=== PATIENT | female | born 1985 | race Caucasian/White ===

== ENCOUNTER → 2018-10-02 | Outpatient (REF) | payer OTHER, SELFPAY | LOC: M LAB LCGH 13:49 | PROVIDERS: ATTEND Family Medicine | DX: Z12.4 Encounter for screening for malignant neoplasm of cervix (principal); N87.0 Mild cervical dysplasia ==

== ENCOUNTER 2022-10-24 21:02 | Inpatient (IN) | payer MEDICAID, OTHER ==
[~2022-10-24] VITALS: Ht 167.6 cm; Wt 60.0 kg
[2022-10-24 21:45] LABS: HEMATOCRIT 41.6 % (36.0-47.0); HEMOGLOBIN 13.8 g/dl (12.0-15.5); MEAN CORPUSCULAR HEMOGLOBIN 30.1 pg (27.0-33.0); MEAN CORPUSCULAR HGB CONC 33.2 g/dl (32.0-36.5); MEAN CORPUSCULAR VOLUME 90.6 fl (80.0-96.0); PLATELET COUNT, AUTOMATED 350 10^3/uL (150-450); RED BLOOD COUNT 4.59 10^6/uL (4.00-5.40); WHITE BLOOD COUNT 17.3 10^3/uL (4.0-10.0)
[2022-10-24 21:56] LABS: AMPHETAMINES LEVEL URINE NEGATIVE (NEGATIVE); BARBITURATES URINE NEGATIVE (NEGATIVE); BENZODIAZEPINES URINE NEGATIVE (NEGATIVE)
[2022-10-24 21:57] LABS: METHADONE URINE NEGATIVE (NEGATIVE); OPIATES URINE NEGATIVE (NEGATIVE); PHENCYCLIDINE URINE NEGATIVE (NEGATIVE)
[2022-10-24 21:58] LABS: ETHYL ALCOHOL (ETHANOL) < 0.003 % (0.000-0.010)
[2022-10-24 22:00] LABS: ACETAMINOPHEN LEVEL < 2.0 UG/ML (10.0-20.0); ALBUMIN 4.6 G/DL (3.2-5.2); ALKALINE PHOSPHATASE 89 U/L (46-116); ALT/SGPT 38 U/L (7.0-40); AST/SGOT 21 U/L (<34); BILIRUBIN,DIRECT 0.2 MG/DL (<0.4); BILIRUBIN,TOTAL 0.7 MG/DL (0.3-1.2); BLOOD UREA NITROGEN 15 MG/DL (9-23); CARBON DIOXIDE LEVEL 23 MMOL/L (20-31); CHLORIDE LEVEL 106 MMOL/L (98-107); CREATININE FOR GFR 0.67 MG/DL (0.55-1.30); GLOMERULAR FILTRATION RATE > 60.0 (>60); GLUCOSE, FASTING 102 MG/DL (60-100); POTASSIUM SERUM 3.9 MMOL/L (3.5-5.1); SALICYLATE LEVEL < 3.0 MG/DL (<30); SODIUM LEVEL 138 MMOL/L (136-145)
[2022-10-24 22:06] LABS: CANNABINOIDS URINE POSITIVE (NEGATIVE); COCAINE METABOLITE URINE POSITIVE (NEGATIVE)
[2022-10-24 22:07] LABS: THYROID STIMULATING HORMONE 3.574 uIU/ML (0.55-4.78)
[2022-10-24] MEDS ORDERED: HOME MED LIST COMPLETE! XX SCH (22:15)
[2022-10-24] MEDS ORDERED: LORazepam 1 MG TAB PO ONE (22:30)
[2022-10-24] MEDS ORDERED: MOM 30ML SUSPENSION UDC PO PRN (23:25)
[2022-10-24] MEDS ORDERED: MAALOX 30 ML SUSP *UDC PO PRN (23:25)
[2022-10-24] MEDS ORDERED: LORazepam 2 MG TAB PO PRN (23:25)
[2022-10-25] MEDS ORDERED: UNRESOLVED CLARIFICATION ENTRY XX SCH (00:01)
[2022-10-25 00:20] VITALS: BP 148/70; TEMP 98.5; O2SAT 97
[2022-10-25 00:32] VITALS: BP 148/70
[2022-10-25] MEDS: THIAMINE 100 MG TAB PO SCH ×3 (00:52→20:04)
[2022-10-25] MEDS: traZODone 50 MG TAB PO PRN ×2 (00:55→20:04)
[2022-10-25 06:00] VITALS: BP 108/52; TEMP 98.4; O2SAT 100
[2022-10-25] MEDS: FOLIC ACID 1MG TAB PO SCH (09:03)
[2022-10-25] MEDS: MULTIVITAMINS/MINERALS THERAP 1 TAB PO SCH (09:03)
[2022-10-25] MEDS: ACETAMINOPHEN TAB 650MG DOSE (2X325MG) PO PRN (09:08)
[2022-10-25] MEDS: NICOTINE 21MG/24HR 1 EA TRANSDERMAL TD SCH (14:21)
[2022-10-25] MEDS: VENLAFAXINE **XR** 37.5 MG CAPSULE PO SCH (14:21)
[2022-10-25] MEDS: ACAMPROSATE CALCIUM 333MG TABLET (CAMPRAL) PO SCH ×2 (15:37→20:04)
[2022-10-25 16:37] VITALS: BP 140/70; TEMP 98.1; O2SAT 97
[2022-10-25 19:30] VITALS: BP 145/70
[2022-10-25] MEDS: diphenhydrAMINE 50MG CAP PO PRN (22:44)
[2022-10-26 05:09] VITALS: BP 140/70
[2022-10-26 06:52] VITALS: BP_SYST 145; BP_DIAS 72; BP_DIAS 77; TEMP 97.9; TEMP 98.2; O2SAT 96; O2SAT 99
[2022-10-26] MEDS: FOLIC ACID 1MG TAB PO SCH (08:06)
[2022-10-26] MEDS: ACAMPROSATE CALCIUM 333MG TABLET (CAMPRAL) PO SCH ×3 (08:06→20:00)
[2022-10-26] MEDS: NICOTINE 21MG/24HR 1 EA TRANSDERMAL TD SCH (08:06)
[2022-10-26] MEDS: MULTIVITAMINS/MINERALS THERAP 1 TAB PO SCH (08:06)
[2022-10-26] MEDS: THIAMINE 100 MG TAB PO SCH ×2 (08:06→20:00)
[2022-10-26] MEDS: VENLAFAXINE **XR** 37.5 MG CAPSULE PO SCH (08:06)
[2022-10-26] MEDS: PANTOPRAZOLE 20 MG TAB PO SCH (12:21)
[2022-10-26 14:00] VITALS: BP 133/67
[2022-10-26 16:08] VITALS: BP 133/67; TEMP 98.2; O2SAT 99
[2022-10-26] MEDS: diphenhydrAMINE 50MG CAP PO PRN (17:38)
[2022-10-26] MEDS: traZODone 50 MG TAB PO PRN (20:00)
[2022-10-26] MEDS: ACETAMINOPHEN TAB 650MG DOSE (2X325MG) PO PRN (20:01)
[2022-10-27 06:24] VITALS: BP 140/64
[2022-10-27 06:27] VITALS: BP 140/64; TEMP 98.3; O2SAT 98
[2022-10-27] MEDS: NICOTINE 21MG/24HR 1 EA TRANSDERMAL TD SCH (08:01)
[2022-10-27] MEDS: VENLAFAXINE **XR** 37.5 MG CAPSULE PO SCH (08:01)
[2022-10-27] MEDS: THIAMINE 100 MG TAB PO SCH (08:01)
[2022-10-27] MEDS: FOLIC ACID 1MG TAB PO SCH (08:01)
[2022-10-27] MEDS: MULTIVITAMINS/MINERALS THERAP 1 TAB PO SCH (08:01)
[2022-10-27] MEDS: PANTOPRAZOLE 20 MG TAB PO SCH (08:01)
[2022-10-27] MEDS: ACAMPROSATE CALCIUM 333MG TABLET (CAMPRAL) PO SCH (08:02)
[2022-10-27] MEDS ORDERED: TRAZ-252 PO (10:30)
[2022-10-27] MEDS ORDERED: VENL37.598 PO (10:30)
[2022-10-27] MEDS ORDERED: DIPH50CA PO (10:30)
[2022-10-27] MEDS ORDERED: ACAM0.05 PO (10:30)
== END 2022-10-27 12:30 | disposition home or self-care (01) | DRG 754 ==
LOC: M ED 21:02 → M ED INP 23:22 → M PSY 10-25 00:01
PROVIDERS: ADMIT Student in an Organized Health Care Education/Training Program; ATTEND Student in an Organized Health Care Education/Training Program
DX: F34.1 Dysthymic disorder (principal); R13.10 Dysphagia, unspecified; R45.851 Suicidal ideations; F43.10 Post-traumatic stress disorder, unspecified; F14.10 Cocaine abuse, uncomplicated; F10.10 Alcohol abuse, uncomplicated; F12.10 Cannabis abuse, uncomplicated; F15.10 Other stimulant abuse, uncomplicated; R63.0 Anorexia; R63.4 Abnormal weight loss; D17.23 Benign lipomatous neoplasm of skin and subcutaneous tissue of right leg; F17.200 Nicotine dependence, unspecified, uncomplicated; Z56.0 Unemployment, unspecified; Z62.810 Personal history of physical and sexual abuse in childhood; Z62.811 Personal history of psychological abuse in childhood; Z81.3 Family history of other psychoactive substance abuse and dependence; Z91.51 Personal history of suicidal behavior; Z91.030 Bee allergy status

== ENCOUNTER 2024-05-03 05:16 | Emergency (ER) | payer MEDICAID, SELFPAY ==
[~2024-05-03] VITALS: Ht 162.6 cm; Wt 64.5 kg
[~2024-05-03 05:16] MED LIST: ACAM0.05 PO; DIPH50CA PO; TRAZ-252 PO; VENL37.598 PO
[2024-05-03 05:46] LABS: HEMATOCRIT 40.3 % (36.0-47.0); HEMOGLOBIN 13.8 g/dl (12.0-15.5); MEAN CORPUSCULAR HEMOGLOBIN 30.9 pg (27.0-33.0); MEAN CORPUSCULAR HGB CONC 34.2 g/dl (32.0-36.5); MEAN CORPUSCULAR VOLUME 90.4 fl (80.0-96.0); PLATELET COUNT, AUTOMATED 312 10^3/uL (150-450); RED BLOOD COUNT 4.46 10^6/uL (4.00-5.40); WHITE BLOOD COUNT 17.3 10^3/uL (4.0-10.0)
[2024-05-03 06:09] LABS: AMPHETAMINES LEVEL URINE NEGATIVE (NEGATIVE); BARBITURATES URINE NEGATIVE (NEGATIVE); METHADONE URINE NEGATIVE (NEGATIVE); OPIATES URINE NEGATIVE (NEGATIVE); PHENCYCLIDINE URINE NEGATIVE (NEGATIVE)
[2024-05-03 06:10] LABS: BENZODIAZEPINES URINE NEGATIVE (NEGATIVE); CANNABINOIDS URINE POSITIVE (NEGATIVE); COCAINE METABOLITE URINE POSITIVE (NEGATIVE)
[2024-05-03 06:11] LABS: ETHYL ALCOHOL (ETHANOL) 0.051 % (0.000-0.010); HCG, SERUM QUALITATIVE NEGATIVE (NEGATIVE)
[2024-05-03 06:12] LABS: SALICYLATE LEVEL < 3.0 MG/DL (<30)
[2024-05-03 06:13] LABS: ALBUMIN 4.4 G/DL (3.2-5.2); ALKALINE PHOSPHATASE 62 U/L (35-104); ALT/SGPT 21 U/L (7.0-40); AST/SGOT 23 U/L (<34); BILIRUBIN,DIRECT 0.2 MG/DL (<0.4); BILIRUBIN,TOTAL 0.5 MG/DL (0.3-1.2); BLOOD UREA NITROGEN 8 MG/DL (9-23); CARBON DIOXIDE LEVEL 22 MMOL/L (20-31); CHLORIDE LEVEL 106 MMOL/L (98-107); CREATININE FOR GFR 0.53 MG/DL (0.55-1.30); GLOMERULAR FILTRATION RATE > 60.0 (>60); GLUCOSE, FASTING 94 MG/DL (60-100); SODIUM LEVEL 139 MMOL/L (136-145); TOTAL PROTEIN 7.7 G/DL (5.7-8.2)
[2024-05-03 06:15] LABS: THYROID STIMULATING HORMONE 1.506 uIU/ML (0.55-4.78)
[2024-05-03] MEDS: LORazepam 2 MG TAB PO ONE (06:55)
[2024-05-03 08:52] VITALS: BP 116/53; TEMP 97; O2SAT 98
== END 2024-05-03 11:11 | disposition home or self-care (01) ==
LOC: M ED 05:16
DX: F15.14 Other stimulant abuse with stimulant-induced mood disorder (principal); F17.210 Nicotine dependence, cigarettes, uncomplicated; F10.10 Alcohol abuse, uncomplicated; Z91.030 Bee allergy status; Z79.899 Other long term (current) drug therapy

== ENCOUNTER 2025-02-19 19:15 | Emergency (ER) | payer MEDICAID, SELFPAY ==
[~2025-02-19] VITALS: Ht 162.6 cm; Wt 63.6 kg
[~2025-02-19 19:15] MED LIST changes: -DIPH50CA PO; +DIPH50CA31 PO
[2025-02-19 19:46] LABS: PLATELET COUNT, AUTOMATED 445 10^3/uL (150-450)
[2025-02-19 20:18] LABS: ETHYL ALCOHOL (ETHANOL) 0.261 % (0.000-0.010)
[2025-02-19 20:19] LABS: SALICYLATE LEVEL < 3.0 MG/DL (<30)
[2025-02-19 20:20] LABS: ALT/SGPT 36 U/L (7.0-40); AST/SGOT 65 U/L (<34); CALCIUM LEVEL 8.6 MG/DL (8.5-10.1); CARBON DIOXIDE LEVEL 22 MMOL/L (20-31); CHLORIDE LEVEL 108 MMOL/L (98-107); CREATININE FOR GFR 0.60 MG/DL (0.55-1.30); GLOMERULAR FILTRATION RATE > 90.0 (>60); POTASSIUM SERUM 4.2 MMOL/L (3.5-5.1); SODIUM LEVEL 140 MMOL/L (136-145)
[2025-02-19 20:31] LABS: HCG, SERUM QUALITATIVE NEGATIVE (NEGATIVE)
[2025-02-19 20:54] LABS: AMPHETAMINES LEVEL URINE NEGATIVE (NEGATIVE); BARBITURATES URINE NEGATIVE (NEGATIVE); COCAINE METABOLITE URINE NEGATIVE (NEGATIVE); METHADONE URINE NEGATIVE (NEGATIVE); OPIATES URINE NEGATIVE (NEGATIVE); PHENCYCLIDINE URINE NEGATIVE (NEGATIVE)
[2025-02-19 20:55] LABS: BENZODIAZEPINES URINE NEGATIVE (NEGATIVE)
[2025-02-19 20:56] LABS: CANNABINOIDS URINE POSITIVE (NEGATIVE)
[2025-02-20 02:47] VITALS: BP 136/63; TEMP 97.8; O2SAT 100
== END 2025-02-20 03:00 | disposition home or self-care (01) ==
LOC: M ED 19:15
DX: F10.120 Alcohol abuse with intoxication, uncomplicated (principal); F32.A Depression, unspecified; F41.9 Anxiety disorder, unspecified; Z91.030 Bee allergy status; Z79.899 Other long term (current) drug therapy

== ENCOUNTER 2025-03-08 16:27 | Emergency (ER) | payer MEDICAID, OTHER ==
[~2025-03-08] VITALS: Ht 162.6 cm; Wt 58.2 kg
[2025-03-08 17:35] LABS: PLATELET COUNT, AUTOMATED 341 10^3/uL (150-450)
[2025-03-08 17:49] LABS: ETHYL ALCOHOL (ETHANOL) 0.138 % (0.000-0.010)
[2025-03-08 17:51] LABS: ALT/SGPT 22 U/L (7.0-40); AST/SGOT 27 U/L (<34); CALCIUM LEVEL 8.9 MG/DL (8.5-10.1); CARBON DIOXIDE LEVEL 28 MMOL/L (20-31); CHLORIDE LEVEL 107 MMOL/L (98-107); CREATININE FOR GFR 0.60 MG/DL (0.55-1.30); GLOMERULAR FILTRATION RATE > 90.0 (>60); HCG, SERUM QUANTITATIVE < 2.6 MIU/ML (<4.2); POTASSIUM SERUM 4.1 MMOL/L (3.5-5.1); SALICYLATE LEVEL < 3.0 MG/DL (<30); SODIUM LEVEL 143 MMOL/L (136-145)
[2025-03-08] MEDS: ACETAMINOPHEN 325 MG TAB PO ONE (21:04)
[2025-03-08 21:32] LABS: BARBITURATES URINE NEGATIVE (NEGATIVE); BENZODIAZEPINES URINE NEGATIVE (NEGATIVE); COCAINE METABOLITE URINE NEGATIVE (NEGATIVE); METHADONE URINE NEGATIVE (NEGATIVE); OPIATES URINE NEGATIVE (NEGATIVE)
[2025-03-08 21:33] LABS: PHENCYCLIDINE URINE NEGATIVE (NEGATIVE)
[2025-03-08 21:36] LABS: AMPHETAMINES LEVEL URINE POSITIVE (NEGATIVE); CANNABINOIDS URINE POSITIVE (NEGATIVE)
[2025-03-09] MEDS ORDERED: HOME MED LIST COMPLETE! XX SCH (06:05)
[2025-03-09 08:56] VITALS: BP 112/72; TEMP 97.6; O2SAT 99
== END 2025-03-09 08:58 | disposition short-term general hospital (02) ==
LOC: M ED 16:27
DX: F10.10 Alcohol abuse, uncomplicated (principal); F32.A Depression, unspecified; Z91.030 Bee allergy status